=== PATIENT | female | born 1975 | race Caucasian/White ===

== ENCOUNTER 2018-07-10 17:41 | Emergency (ER) | payer MEDICAID ==
[~2018-07-10] VITALS: Ht 165.1 cm; Wt 79.0 kg
[2018-07-10 18:23] VITALS: Ht 165.1 cm; Wt 79.0 kg
[2018-07-10] MEDS ORDERED: ACETAMINOPHEN 500 MG TAB PO STA (21:27)
--- NOTE | 2018-07-10 21:27 | ERD ---
ER Documentation Chief Complaint Chief Complaint 19 WEEKS PREG WITH VAGINAL BLEEDING HPI This is a 42-year-old female who presents emergency department with complaints of vaginal bleeding, pelvic pain that started today. LMP: February 25, 2018. HAILEE: 11/30/2017. . OB doctor: Ferdinand Baez MD. Denies headache, dizziness, blurry vision, changes in vision, neck pain, neck stiffness, throat pain, difficulty swallowing, difficulty breathing lying flat, loss of bowel bladder control, urinary symptoms, or possibility of being , vaginal bleeding, vaginal discharge, trauma, injury, falls, recent surgery in the last 3 weeks, recent travel, recent long travel, leg pain, difficulty walking, numbness or tingling sensation, recent exposure to any illness, recent antibiotic use in the last 3 months, fever, chills. ROS All systems reviewed and are negative except as per history of present illness. Medications Home Meds Active Scripts Vit No.124/Iron/FA ( Vitamin Tablet) 1 Each Tablet, 1 EACH PO DAILY, #30 TAB Prov:PASILABAN,KLAR F 07/10/18 Cephalexin* (Keflex*) 500 Mg Capsule, 500 MG PO TID for 7 Days, CAP Prov:PASILABAN,KLAR F 07/10/18 Acetaminophen* (Tylophen*) 500 Mg Capsule, 1 CAP PO Q6H PRN for PAIN AND OR ELEVATED TEMP, #20 CAP Prov:PASILABAN,KLAR F 07/10/18 Allergies Allergies: Coded Allergies: No Known Drug Allergies (Verified Allergy, Mild, 10/05/10) No Known Allergy (Verified , 03/22/11) PMhx/Soc Medical and Surgical Hx: pt denies Surgical Hx History of Surgery: No Anesthesia Reaction: No Hx Neurological Disorder: No Hx Respiratory Disorders: No Hx Cardiac Disorders: No Hx Psychiatric Problems: No Hx Miscellaneous Medical Probl: Yes (THYROID) Hx Alcohol Use: No Hx Substance Use: No Hx Tobacco Use: No Smoking Status: Never smoker Physical Exam Vitals Physical Exam Const: No acute distress Head: Atraumatic Eyes: Normal Conjunctiva ENT: Normal External Ears, Nose and Mouth. Neck: Full range of motion. No meningismus. Resp: Clear to auscultation bilaterally Cardio: Regular rate and rhythm, no murmurs Abd: Soft, non tender, non distended. Normal bowel sounds. Negative [place] sign. Negative [place] sign (heel jar test) were negative psoas sign. Negative [place]ov[place] sign. Skin: No petechiae or rashes Back: No midline or flank tenderness. No CVA tenderness. Ext: No cyanosis, or edema Neur: Awake and alert. No neurological deficits. Psych: Normal Mood and Affect Results 24 hrs Laboratory Tests Test 07/10/18 21:36 White Blood Count 7.8 10^3/ul Red Blood Count 4.41 10^6/ul Hemoglobin 13.4 g/dl Hematocrit 40.4 % Mean Corpuscular Volume 91.6 fl Mean Corpuscular Hemoglobin 30.4 pg Mean Corpuscular Hemoglobin Concent 33.2 g/dl Red Cell Distribution Width 13.9 % Platelet Count 172 10^3/UL Mean Platelet Volume 10.6 fl Immature Granulocytes % 0.600 % Neutrophils % 68.4 % Lymphocytes % 25.3 % Monocytes % 4.9 % Eosinophils % 0.5 % Basophils % 0.3 % Nucleated Red Blood Cells % 0.0 /100WBC Immature Granulocytes # 0.050 10^3/ul Neutrophils # 5.4 10^3/ul Lymphocytes # 2.0 10^3/ul Monocytes # 0.4 10^3/ul Eosinophils # 0.0 10^3/ul Basophils # 0.0 10^3/ul Nucleated Red Blood Cells # 0.0 10^3/ul Urine Color YELLOW Urine Clarity SLIGHTLY CLOUDY Urine pH 5.0 Urine Specific [place] 1.024 Urine Ketones 2+ mg/dL Urine Nitrite NEGATIVE mg/dL Urine Bilirubin NEGATIVE mg/dL Urine Urobilinogen NEGATIVE mg/dL Urine Leukocyte Esterase NEGATIVE Patrice/ul Urine Microscopic RBC 104 /HPF Urine Microscopic WBC 13 /HPF Urine Squamous Epithelial Cells FEW /HPF Urine Bacteria FEW /HPF Urine Mucus MODERATE /HPF Urine Hemoglobin 3+ mg/dL Urine Glucose NEGATIVE mg/dL Urine Total Protein NEGATIVE mg/dl Sodium Level 135 mmol/L Potassium Level 3.9 mmol/L Chloride Level 103 mmol/L Carbon Dioxide Level 23 mmol/L Anion Gap 9 Blood Urea Nitrogen 9 mg/dl Creatinine 0.45 mg/dl Est Glomerular Filtrat Rate mL/min > 60 mL/min Glucose Level 83 mg/dl Calcium Level 9.3 mg/dl Total Bilirubin 0.1 mg/dl Direct Bilirubin 0.00 mg/dl Indirect Bilirubin 0.1 mg/dl Aspartate Amino Transf (AST/SGOT) 28 IU/L Alanine Aminotransferase (ALT/SGPT) 19 IU/L Alkaline Phosphatase 75 IU/L Total Protein 7.2 g/dl Albumin 3.8 g/dl Globulin 3.40 g/dl Albumin/Globulin Ratio 1.11 Amylase Level 97 U/L Lipase 46 U/L Beta HCG, Quantitative 79182.0 mIU/ml Current Medications Medications Dose Sig/Daryl Start Time Status Last (Trade) Ordered Route PRN Stop Time Admin Dose Reason Admin 500 mg ONCE STAT 07/10/18 DC Acetaminophen PO 21:27 (Tylenol 07/10/18 21:30 Tab) Procedures/MDM Diagnostic tests: Urinalysis: Reviewed. Culture urine: Sent. HCG quantitative: 75327.0. Type and Rh: O Positive. OB ultrasound: Single live intrauterine gestation with estimated gestational age of 19 weeks and 2 days +/-1 week and 2 days, as detailed above. Treatment: Tylenol p.o. Re-evaluation: Denies chest pain, back pain, abdominal pain, vaginal bleeding. No CVA tenderness. Differential diagnosis I have low suspicion for ectopic , hemorrhaging, sepsis. Final diagnosis: Vaginal bleeding in . Threatened . Prescription: Keflex. Tylenol. vitamins. Follow-up with OB in the next 24-48 hours. Resources was also provided. Come back here in the emergency department for any new symptoms or any worsening symptoms. All questions and concerns were answered. Patient and family members verbalized understanding and agreed with plan of care. Hemodynamically stable on discharge. Departure Diagnosis: Primary Impression: Vaginal bleeding in patient at less than 20 weeks gestation Additional Impression: Threatened Condition: Stable Additional Instructions: Follow-up with OB in the next 24-48 hours. Resources was also provided. Come back here in the emergency department for any new symptoms or any worsening symptoms. JOMAR MCMAHON Jul 10, 2018 21:27
[2018-07-10] MEDS ORDERED: ACET500C5 PO (23:41)
[2018-07-10] MEDS ORDERED: CEPH-443 PO (23:41)
[2018-07-10] MEDS ORDERED: PREN-93 PO (23:42)
[2018-07-11 00:46] VITALS: BP 156/67; PULSE 91; RESP 18
== END 2018-07-11 00:48 | disposition home or self-care (01) ==
LOC: FTE 17:41
DX: O20.0 Threatened abortion (principal); R10.2 Pelvic and perineal pain; Z3A.19 19 weeks gestation of pregnancy
CPT/HCPCS: 76805; 80053; 81001; 82150; 83690; 84702; 85025; 86900; 86901; 87086; Z7610

== ENCOUNTER 2018-11-13 12:21 | Outpatient (CLI) | payer MEDICAID ==
[~2018-11-13] VITALS: Ht 152.4 cm; Wt 84.5 kg
[~2018-11-13 12:21] MED LIST: ACET500C5 PO; CEPH-443 PO; PREN-93 PO
[2018-11-13 12:33] VITALS: Ht 152.4 cm; Wt 84.5 kg
[2018-11-13 12:34] VITALS: BP 125/73; PULSE 86; RESP 18
--- NOTE | 2018-11-13 19:26 | PN ---
Triage Information Date/Time Reason for visit: Uterine contractions Weeks of Gestation 37 weeks /Para Diabetes: none Hypertention: none Objective Vital Signs Date Temp Pulse Resp B/P (MAP) Pulse Ox O2 O2 Flow FiO2 Time Delivery Rate 11/13/18 98.2 86 18 125/73 12:34 (90) Heart Rate: 140's Heart Rate Comments Reactive Exam Cervix 1 cm Results/Medications Imaging Results BP 01/02 Disposition: Discharge Assessment/Plan Not in labor TRESA PEREZ MD Nov 13, 2018 19:26
--- NOTE | 2018-11-13 20:26 | TRIAGE ---
OB Triage Datetime Report Generated by CPN: 11/13/2018 20:25 Datetime: 11/13/2018 19:20 Vaginal Exam Dilatation (cms): 1.0 Effacement (%): 70 Station: -3 Exam By: Dr. Delshad Membrane Status: Intact Datetime: 11/13/2018 18:56 Labor Evaluation Frequency: irreg Monitor Mode: External Duration (sec)2399: 40-60 Quality: Mild Pattern: Normal: <= 5 Contractions in 10 Minutes Resting Tone [place]: Relaxed Heart Rate FHR Baseline Rate: 155 Monitor Mode: External US Variability: Moderate 6-25 bpm Accelerations: 15X15 Decelerations: None Category: Category I Datetime: 11/13/2018 18:08 Vaginal Exam Dilatation (cms): 1.5 Effacement (%): 70 Station: -3 Exam By: wliu Datetime: 11/13/2018 17:56 Labor Evaluation Frequency: occ Monitor Mode: External Duration (sec)2399: 50 Quality: Mild Pattern: Normal: <= 5 Contractions in 10 Minutes Resting Tone [place]: Relaxed Heart Rate FHR Baseline Rate: 145 Monitor Mode: External US Variability: Moderate 6-25 bpm Accelerations: 15X15 Decelerations: None Category: Category I Datetime: 11/13/2018 17:00 Labor Evaluation Frequency: irreg Monitor Mode: External Duration (sec)2399: 60-80 Quality: Mild Pattern: Normal: <= 5 Contractions in 10 Minutes Resting Tone [place]: Relaxed Heart Rate FHR Baseline Rate: 145 Monitor Mode: External US Variability: Moderate 6-25 bpm Accelerations: 15X15 Decelerations: Late Category: Category II Comments: late x2 Datetime: 11/13/2018 16:01 Labor Evaluation Frequency: 3-9 Monitor Mode: External Duration (sec)2399: 60-90 Quality: Mild Pattern: Normal: <= 5 Contractions in 10 Minutes Resting Tone [place]: Relaxed Heart Rate FHR Baseline Rate: 145 Monitor Mode: External US Variability: Moderate 6-25 bpm Accelerations: 15X15 Decelerations: Late Category: Category II Datetime: 11/13/2018 15:55 Assessment Type: Triage Datetime: 11/13/2018 15:28 Vaginal Exam Dilatation (cms): 1.0 Effacement (%): 70 Station: -3 Exam By: wliu Datetime: 11/13/2018 14:38 Labor Evaluation Frequency: 2-6 Monitor Mode: External Duration (sec)2399: 50-80 Quality: Mild Pattern: Normal: <= 5 Contractions in 10 Minutes Resting Tone [place]: Relaxed Heart Rate FHR Baseline Rate: 145 Monitor Mode: External US Variability: Moderate 6-25 bpm Accelerations: 15X15 Decelerations: None Category: Category I Datetime: 11/13/2018 14:00 Labor Evaluation Frequency: 4-6 Monitor Mode: External Duration (sec)2399: 60-120 Quality: Mild Pattern: Normal: <= 5 Contractions in 10 Minutes Resting Tone [place]: Relaxed Heart Rate FHR Baseline Rate: 145 Monitor Mode: External US Variability: Moderate 6-25 bpm Accelerations: 15X15 Decelerations: None Category: Category I Datetime: 11/13/2018 13:10 Vaginal Exam Dilatation (cms): 0.0 Exam By: wliu Datetime: 11/13/2018 13:00 Labor Evaluation Frequency: 3-5 Monitor Mode: External Duration (sec)2399: 50-60 Quality: Mild Pattern: Normal: <= 5 Contractions in 10 Minutes Resting Tone [place]: Relaxed Heart Rate FHR Baseline Rate: 145 Monitor Mode: External US Variability: Moderate 6-25 bpm Accelerations: 15X15 Decelerations: None Category: Category I Datetime: 11/13/2018 12:32 Assessment Type: Triage Maternal Assessment Level of Consciousness: Keenly Alert, Responsive DTR's/Clonus: DTRs 2+; No Clonus Headache: Denies Blurred Vision: No Respiratory Effort: Unlabored; Regular Rhythm; Equal Expansion Breath Sounds, Left: Clear and Equal Breath Sounds, Right: Clear and Equal Nausea/Vomiting: Denies RUQ Epigastric Pain: Denies Lower Extremities Edema: None Degree: None Upper Extremities Edema: None Degree: None Facial Edema: None Fall Risk Assessment History of Falling: (0) No Secondary Diagnosis: (0) No Ambulatory Aid: (0) Bedrest/Nurse Assist IV Therapy: (0) No Gait: (0) Normal/Bedrest/Immobile Mental Status: (0) Oriented to Own Ability Fall Score: 0 Fall Risk Score Definition: No Risk: No action required Datetime: 11/13/2018 12:31 Time of Arrival: 11/13/2018 12:15 EGA: 37.5 Arrived By: Ambulatory Arrived From: Home Chief Complaint: c/o vag. pressure Movement: Present Contractions: Denies/Absent Rupture of Membranes: Denies Vaginal Bleeding: None Vaginal Discharge: Denies Recent Sexual Intercouse: Denies Abdominal Trauma: Not Applicable Patient Complaints: Other Time Provider Notified: 11/13/2018 13:13 Provider Notified: Initial Plan: r/o labor
== END 2018-11-13 19:45 | disposition home or self-care (01) ==
LOC: OBT 12:21 → L-D 12:22 → OBT 19:45
PROVIDERS: ATTEND Obstetrics & Gynecology
DX: O62.9 Abnormality of forces of labor, unspecified (principal); O09.523 Supervision of elderly multigravida, third trimester; Z3A.37 37 weeks gestation of pregnancy
CPT/HCPCS: 76818; Z7500; G0463

== ENCOUNTER 2018-11-14 19:55 | Outpatient (CLI) | payer MEDICAID ==
[~2018-11-14] VITALS: Ht 152.4 cm; Wt 84.3 kg
[~2018-11-14 19:55] MED LIST changes: -ACET500C5 PO; -CEPH-443 PO
[2018-11-14 21:16] VITALS: BP 120/67; PULSE 82; RESP 15
--- NOTE | 2018-11-15 03:01 | TRIAGE ---
OB Triage Datetime Report Generated by CPN: 11/15/2018 03:01 Datetime: 11/14/2018 21:33 Stage of : OB Triage Labor Evaluation Frequency: 3-6 Monitor Mode: External Quality: Mild Pattern: Normal: <= 5 Contractions in 10 Minutes Resting Tone [place]: Relaxed Contraction Comments: Pt denies feelin ucs or discomfort Heart Rate FHR Baseline Rate: 150 Monitor Mode: External US FHR Baseline Changes: No Baseline Change Variability: Moderate 6-25 bpm Accelerations: 15X15 Decelerations: None Category: Category I Vaginal Exam Dilatation (cms): 2.0 Effacement (%): 80 Station: -2 Exam By: Maxi Rai Membrane Status: Intact Vaginal Bleeding: Scant Cervix, Consistency: Soft Cervix, Position: Posterior Presentation 'A': Cephalic Datetime: 11/14/2018 20:43 Time of Arrival: 11/14/2018 19:45 EGA: 37.6 Arrived By: Ambulatory Arrived From: Home Chief Complaint: presents w/ orders for follow up NST Per Dr Thrasher pt was here yesterday w/ ucs and had several variables Movement: Present Contractions: Denies/Absent Rupture of Membranes: Denies Vaginal Bleeding: None Vaginal Discharge: Denies Recent Sexual Intercouse: Denies Abdominal Trauma: Not Applicable Patient Complaints: None Time Provider Notified: 11/14/2018 20:00 Provider Notified: Dr Thrasher Initial Plan: NST Datetime: 11/14/2018 20:39 Stage of : OB Triage Maternal Assessment Headache: Denies Blurred Vision: No Respiratory Effort: Unlabored Nausea/Vomiting: Denies RUQ Epigastric Pain: Denies Facial Edema: None Quality: Mild Resting Tone [place]: Relaxed Heart Rate FHR Baseline Rate: 140 Monitor Mode: External US Pain Assessment Pain Scale: 0 Pain Presence: None/Denies Pain Type: N/A Datetime: 11/13/2018 19:18 Pain Assessment Pain Scale: 0 Pain Presence: None/Denies Pain Type: N/A Datetime: 11/13/2018 12:32 Fall Risk Assessment Fall Score: 0 Fall Risk Score Definition: No Risk: No action required Datetime: 11/13/2018 12:31 EGA: 37.5
--- NOTE | 2018-11-15 11:01 | PN ---
Triage Information Date/Time late entry for service rendered at 2220 0n 11/14/18 Reason for visit: NST f/u Weeks of Gestation 37w6d /Para Diabetes: none Hypertention: none Additional information x2 PTB on at 34w one at 32w Objective Vital Signs Date Temp Pulse Resp B/P (MAP) Pulse Ox O2 O2 Flow FiO2 Time Delivery Rate 11/14/18 98.2 82 15 120/67 Room Air 21:16 (84) Heart Rate Comments CAT I tracing Exam VE 1-2/80/-3 Results/Medications Results 24 hrs Laboratory Tests Test 11/14/18 20:30 Urine Color YELLOW Urine Clarity SLIGHTLY CLOUDY A Urine pH 6.0 Urine Specific [place] 1.025 Urine Ketones NEGATIVE Urine Nitrite NEGATIVE Urine Bilirubin NEGATIVE Urine Urobilinogen NEGATIVE Urine Leukocyte Esterase NEGATIVE Urine Microscopic RBC 5 Urine Microscopic WBC 1 Urine Squamous Epithelial Cells FEW Urine Mucus FEW A Urine Hemoglobin NEGATIVE Urine Glucose NEGATIVE Urine Total Protein NEGATIVE Imaging Results BPP done 11/13/18 8/8,KEYUR 10.8 Disposition: Discharge Assessment/Plan A IUP 37w6d reactive NST P discharge home with routine labor instructions RTH prn f/u with with her OB on 11/15/18 LUTHER LONGORIA MD Nov 15, 2018 11:01
== END 2018-11-14 23:00 | disposition home or self-care (01) ==
LOC: OBT 19:55 → L-D 19:56 → OBT 23:00
PROVIDERS: ATTEND Obstetrics & Gynecology
DX: O36.8330 Maternal care for abnormalities of the fetal heart rate or rhythm, third trimester, not applicable or unspecified (principal); O09.523 Supervision of elderly multigravida, third trimester; Z3A.37 37 weeks gestation of pregnancy
CPT/HCPCS: 81001; 87086; Z7500; 81003; G0463

== ENCOUNTER 2018-11-26 06:14 | Inpatient (IN) | payer MEDICAID ==
[~2018-11-26] VITALS: Ht 152.4 cm; Wt 86.0 kg
[2018-11-26] VITALS (7 sets, daily range): BP systolic 101–136; BP diastolic 58–91; PULSE 92–107; RESP 18–20
[2018-11-26] MEDS ORDERED: LACTATED RINGER'S 1,000 ML IV SCH ×2 (06:36→15:01)
[2018-11-26] MEDS ORDERED: LACTATED RINGER'S 1,000 ML IV PRN (06:36)
[2018-11-26] MEDS ORDERED: AMPICILLIN 2 GM/NS (PMX) 100 ML IV ONE (06:38)
[2018-11-26] MEDS ORDERED: AMPICILLIN 2 GM/NS (PMX) 100 ML ONE (06:38)
--- NOTE | 2018-11-26 06:38 | TRIAGE ---
OB Triage Datetime Report Generated by CPN: 11/26/2018 06:38 Datetime: 11/26/2018 06:18 Time of Arrival: 11/26/2018 06:10 EGA: 39.4 Arrived By: Ambulatory Arrived From: Home Chief Complaint: CONTRACTIONS Movement: Present Contractions: Regular Time Contractions Began: 11/26/2018 05:00 Contractions: Q10MIN- PER PT Rupture of Membranes: Denies Vaginal Bleeding: None Vaginal Discharge: Denies Recent Sexual Intercouse: Denies Abdominal Trauma: Not Applicable Patient Complaints: Contractions Time Provider Notified: 11/26/2018 06:30 Provider Notified: FAZILAT Initial Plan: CEFM, SVE Datetime: 11/14/2018 22:49 Stage of : OB Triage Datetime: 11/14/2018 22:23 Stage of : OB Triage Datetime: 11/14/2018 21:33 Vaginal Exam Dilatation (cms): 1.5 Datetime: 11/14/2018 20:43 EGA: 37.6 Datetime: 11/13/2018 12:32 Fall Risk Assessment Fall Score: 0 Fall Risk Score Definition: No Risk: No action required Datetime: 11/13/2018 12:31 EGA: 37.5
[2018-11-26] MEDS ORDERED: IBUPROFEN 600 MG TAB PO PRN (07:00)
[2018-11-26] MEDS ORDERED: METHYLERGONOVINE 0.2 MG INJ IM PRN ×3 (07:00→15:30)
[2018-11-26] MEDS ORDERED: LIDOCAINE 1% (MPF) 30 ML INJ INJ PRN (07:00)
[2018-11-26] MEDS ORDERED: CARBOPROST 250 MCG INJ IM PRN ×3 (07:00→15:30)
[2018-11-26] MEDS ORDERED: OXYTOCIN 30 UNITS/LR 500 ML IV SCH ×3 (07:00→15:01)
[2018-11-26] MEDS ORDERED: BUTORPHANOL 2 MG INJ IV PRN (07:00)
[2018-11-26] MEDS ORDERED: OXYTOCIN 30 UNITS/LR 500 ML IV PRN ×3 (07:00→15:30)
[2018-11-26] MEDS ORDERED: MISOPROSTOL 200 MCG TAB PR PRN ×3 (07:00→15:30)
--- NOTE | 2018-11-26 07:32 | PREAC ---
Date/Time of Note Date/Time of Note DATE: 11/26/18 TIME: 07:30 Anesthesia Eval and Record Evaluation Time Pre-Procedure Interview DATE: 11/26/18 TIME: 07:30 Age 42 Sex female NPO: 8 hrs Preoperative diagnosis LABOR PAIN Planned procedure LABOR EPIDURAL Past Medical History Past Medical History: Includes GI: Obesity : : (3), Para: (2), Gestational age: (39 4/7 WEEKS) Surgery & Anesthesia Issues No known issue Meds Anticoagulation: No Beta Brendan within 24 hr: No Reason Beta Brendan not given: Pt. not on B-Brendan Active Scripts Vit No.124/Iron/FA ( Vitamin Tablet) 1 Each Tablet, 1 EACH PO DAILY, #30 TAB Prov:JOMAR MCMAHON Estelita 07/10/18 Current Medications Lactated Ringer's 1,000 ml @ 125 mls/hr Q8H IV ; Start 11/26/18 at 06:36 Ampicillin 100 ml @ 100 mls/hr ONCE ONCE IV Last administered on 11/26/18at 06:41; Admin Dose 100 MLS/HR; Start 11/26/18 at 06:38; Stop 11/26/18 at 07:37 Ampicillin 50 ml @ 100 mls/hr Q4H IV ; Start 11/26/18 at 11:00 Butorphanol Tartrate (Stadol) 2 mg Q2H PRN IV .PAIN SCALE 6-10; Start 11/26/18 at 07:00 Lidocaine (Xylocaine 1% (Mpf)) 30 ml ONCE PRN INJ .EPISIOTOMY; Start 11/26/18 at 07:00 Oxytocin/Lactated Ringer's 500 ml @ 500 mls/hr ONCE POST IV ; Start 11/26/18 at 07:00 Oxytocin/Lactated Ringer's 500 ml @ 125 mls/hr POST IV ; Start 11/26/18 at 07:00 Ibuprofen (Motrin) 600 mg ONCE PRN PO .PAIN 1-5; Start 11/26/18 at 07:00 Lactated Ringer's 1,000 ml @ 2,000 mls/hr Q30M PRN IV .ANESTHESIA Last admi nistered on 11/26/18at 06:41; Admin Dose 2,000 MLS/HR; Start 11/26/18 at 06:36 Oxytocin/Lactated Ringer's 500 ml @ 0 mls/hr ONCE PRN IV .VAGINAL BLEEDING; Start 11/26/18 at 07:00 Methylergonovine Maleate (Methergine) 0.2 mg ONCE PRN IM .VAGINAL BLEEDING; Start 11/26/18 at 07:00 Carboprost Tromethamine (Hemabate) 250 mcg ONCE PRN IM .VAGINAL BLEEDING; Start 11/26/18 at 07:00 Misoprostol (Cytotec) 1,000 mcg ONCE PRN CA .VAGINAL BLEEDING; Start 11/26/18 at 07:00 Meds reviewed: Yes Allergies Coded Allergies: No Known Allergy (Verified , 11/14/18) Allergies Reviewed: Yes Labs/Studies Labs Reviewed: Reviewed by anesthesiologist Result Diagram: 11/26/18 0630 Laboratory Tests 11/26/18 06:30 test: N/A Pre-procedure Exam Last vitals Vital Signs Date Temp Pulse Resp B/P (MAP) Pulse Ox O2 O2 Flow FiO2 Time Delivery Rate 11/26/18 98.3 92 20 135/91 Room Air 06:40 (106) Airway: Adequate mouth opening, Adequate thyromental dist Mallampati: Mallampati II Teeth: Normal Lung: Normal Heart: Normal ASA Physical Status ASA physical status: 2 Emergency: None Planned Anesthetic Neuraxial: Epidural Planned Pain Management Epidural Pre-operative Attestations Prior to commencing anesthesia and surgery, the patient was re-evaluated, there was verification of: *The patient's identity *The results of appropriate recent lab work and preoperative vital signs *The above evaluation not changing prior to induction *Anesthetic plan, risk benefits, alternative and complications discussed with patient/family; questions answered; patient/family understands, accepts and wishes to proceed. Richar Rogers M.D. Nov 26, 2018 07:31
[2018-11-26] MEDS ORDERED: FENTAnyl 2MCG/ML-ROPIV 0.2% 100 ML ONE (07:35)
--- NOTE | 2018-11-26 08:45 | PAC ---
Date/Time of Note Date/Time of Note DATE: 11/26/18 TIME: 08:45 Post-Anesthesia Notes Post-Anesthesia Note Last documented vital signs Vital Signs Date Temp Pulse Resp B/P (MAP) Pulse Ox O2 O2 Flow FiO2 Time Delivery Rate 11/26/18 98.3 92 20 135/91 Room Air 06:40 (106) Activity: WNL Respiratory function: WNL Cardiovascular function: WNL Mental status: Baseline Pain reasonably controlled: Yes Hydration appropriate: Yes Nausea/Vomiting absent: Yes Richar Rogers M.D. Nov 26, 2018 08:45
[2018-11-26] MEDS ORDERED: NALOXONE (0.4 MG/ML) INJ IV PRN ×2 (09:00→10:30)
[2018-11-26] MEDS ORDERED: ONDANSETRON 4 MG INJ IV PRN ×2 (09:00→10:30)
[2018-11-26] MEDS ORDERED: DIPHENHYDRAMINE 50 MG INJ IV PRN ×2 (09:00→10:30)
[2018-11-26] MEDS ORDERED: TRIMETHOBENZAMIDE 100 MG/ML VIAL IM PRN ×2 (09:00→10:30)
[2018-11-26] MEDS ORDERED: CEFAZOLIN 2 GM/50 ML (PMX) 50 ML IVPB ONE (09:29)
[2018-11-26] MEDS ORDERED: CEFAZOLIN 2 GM/50 ML (PMX) 50 ML IVPB SCH (09:30)
--- NOTE | 2018-11-26 09:32 | PREAC ---
Date/Time of Note Date/Time of Note DATE: 11/26/18 TIME: 09:31 Anesthesia Eval and Record Evaluation Time Pre-Procedure Interview DATE: 11/26/18 TIME: 09:31 Age 42 Sex female NPO: 8 hrs Preoperative diagnosis distress Planned procedure urgent c section Past Medical History Past Medical History: Includes : : (3), Para: (2), Gestational age: (39 4/7) Surgery & Anesthesia Issues No known issue Meds Anticoagulation: No Beta Brendan within 24 hr: No Reason Beta Brendan not given: Pt. not on B-Brendan Active Scripts Vit No.124/Iron/FA ( Vitamin Tablet) 1 Each Tablet, 1 EACH PO DAILY, #30 TAB Prov:JOMAR MCMAHON Estelita 07/10/18 Current Medications Lactated Ringer's 1,000 ml @ 125 mls/hr Q8H IV ; Start 11/26/18 at 06:36 Ampicillin 50 ml @ 100 mls/hr Q4H IV ; Start 11/26/18 at 11:00 Butorphanol Tartrate (Stadol) 2 mg Q2H PRN IV .PAIN SCALE 6-10; Start 11/26/18 at 07:00 Lidocaine (Xylocaine 1% (Mpf)) 30 ml ONCE PRN INJ .EPISIOTOMY; Start 11/26/18 at 07:00 Oxytocin/Lactated Ringer's 500 ml @ 500 mls/hr ONCE POST IV ; Start 11/26/18 at 07:00 Oxytocin/Lactated Ringer's 500 ml @ 125 mls/hr POST IV ; Start 11/26/18 at 07:00 Ibuprofen (Motrin) 600 mg ONCE PRN PO .PAIN 1-5; Start 11/26/18 at 07:00 Lactated Ringer's 1,000 ml @ 2,000 mls/hr Q30M PRN IV .ANESTHESIA Last administered on 11/26/18at 06:41; Admin Dose 2,000 MLS/HR; Start 11/26/18 at 06:36 Oxytocin/Lactated Ringer's 500 ml @ 0 mls/hr ONCE PRN IV .VAGINAL BLEEDING; Start 11/26/18 at 07:00 Methylergonovine Maleate (Methergine) 0.2 mg ONCE PRN IM .VAGINAL BLEEDING; Start 11/26/18 at 07:00 Carboprost Tromethamine (Hemabate) 250 mcg ONCE PRN IM .VAGINAL BLEEDING; Start 11/26/18 at 07:00 Misoprostol (Cytotec) 1,000 mcg ONCE PRN PA .VAGINAL BLEEDING; Start 11/26/18 at 07:00 Naloxone HCl (Narcan) 0.1 mg Q2M PRN IV .RESP RATE; Start 11/26/18 at 09:00; Stop 11/27/18 at 08:59 Diphenhydramine HCl (Benadryl) 25 mg Q6H PRN IV .ITCHING; Start 11/26/18 at 09:00; Stop 11/27/18 at 08:59 Ondansetron HCl (Zofran Inj) 4 mg Q6H PRN IV .NAUSEA/VOMITING; Start 11/26/18 at 09:00; Stop 11/27/18 at 08:59 Trimethobenzamide HCl (Tigan) 200 mg Q6H PRN IM .NAUSEA/VOMITING; Start 11/26/18 at 09:00; Stop 11/27/18 at 08:59 Cefazolin Sodium/ Dextrose 50 ml @ 100 mls/hr ONCE IVPB ; Start 11/26/18 at 09:30; Status UNV Oxytocin/Lactated Ringer's 500 ml @ 0 mls/hr ONCE PRN IV .VAGINAL BLEEDING; Start 11/26/18 at 09:30; Status UNV Methylergonovine Maleate (Methergine) 0.2 mg ONCE PRN IM .VAGINAL BLEEDING; Start 11/26/18 at 09:30; Status UNV Carboprost Tromethamine (Hemabate) 250 mcg ONCE PRN IM .VAGINAL BLEEDING; Start 11/26/18 at 09:30; Status UNV Misoprostol (Cytotec) 1,000 mcg ONCE PRN PA .VAGINAL BLEEDING; Start 11/26/18 at 09:30; Status UNV Meds reviewed: Yes Allergies Coded Allergies: No Known Allergy (Verified , 11/14/18) Allergies Reviewed: Yes Labs/Studies Labs Reviewed: Reviewed by anesthesiologist Result Diagram: 11/26/18 0630 Laboratory Tests 11/26/18 06:30 Blood Bank Test 11/26/18 06:30 Antibody Screen NEGATIVE Blood Type O POSITIVE Rh Immune Globulin Candidate NO test: Negative Pre-procedure Exam Last vitals Vital Signs Date Temp Pulse Resp B/P (MAP) Pulse Ox O2 O2 Flow FiO2 Time Delivery Rate 11/26/18 98.3 92 20 135/91 Room Air 06:40 (106) Airway: Adequate mouth opening, Adequate thyromental dist Mallampati: Mallampati II Teeth: Normal Lung: Normal Heart: Normal ASA Physical Status ASA physical status: 2 Emergency: E Planned Anesthetic Neuraxial: Epidural Planned Pain Management Sub-arachniod narcotics Pre-operative Attestations Prior to commencing anesthesia and surgery, the patient was re-evaluated, there was verification of: *The patient's identity *The results of appropriate recent lab work and preoperative vital signs *The above evaluation not changing prior to induction *Anesthetic plan, risk benefits, alternative and complications discussed with patient/family; questions answered; patient/family understands, accepts and wishes to proceed. Richar Rogers M.D. Nov 26, 2018 09:32
[2018-11-26] MEDS ORDERED: METOCLOPRAMIDE 10 MG INJ ONE (09:36)
[2018-11-26] MEDS ORDERED: OXYTOCIN 10 UNIT INJ ONE (09:36)
[2018-11-26] MEDS ORDERED: morphine SULFATE/PF (10 MG/10 ML) INJ ONE (09:36)
[2018-11-26] MEDS ORDERED: FENTAnyl 50 MCG/ML VIAL ONE (09:36)
[2018-11-26] MEDS ORDERED: KETAMINE (50 MG/ML) 10 ML VIAL ONE (09:41)
[2018-11-26] MEDS ORDERED: AZITHROMYCIN 500MG/NS (PMX) 250 ML IV SCH (10:00)
[2018-11-26] MEDS ORDERED: morphine 2 MG INJ IV PRN ×2 (10:30)
[2018-11-26] MEDS ORDERED: NALBUPHINE HCL (10 MG/1 ML) INJ IV PRN (10:30)
[2018-11-26] MEDS ORDERED: KETOROLAC 30 MG INJ IV PRN (10:30)
--- NOTE | 2018-11-26 10:36 | PAC ---
Date/Time of Note Date/Time of Note DATE: 11/26/18 TIME: 10:36 Post-Anesthesia Notes Post-Anesthesia Note Last documented vital signs Vital Signs Date Temp Pulse Resp B/P (MAP) Pulse Ox O2 O2 Flow FiO2 Time Delivery Rate 11/26/18 98.3 92 20 135/91 Room Air 06:40 (106) Activity: WNL Respiratory function: WNL Cardiovascular function: WNL Mental status: Baseline Pain reasonably controlled: Yes Hydration appropriate: Yes Nausea/Vomiting absent: Yes Richar Rogers M.D. Nov 26, 2018 10:36
--- NOTE | 2018-11-26 10:59 | QN ---
Documentation Comment Patient with recurrent heart decelerations with vertex at 0 station, pushing but there is no descent of head. Patient with Category II tracing remote from delivery. Patient is for delivery by primary . Risks, benefits and alternatives were explained to the patient who stated she understood and gave informed consent for the procedure. TRESA PEREZ MD Nov 26, 2018 10:59
[2018-11-26] MEDS ORDERED: AMPICILLIN 1 GM/NS (PMX) 50 ML IV SCH (11:00)
--- NOTE | 2018-11-26 11:53 | OPR ---
Operative Report Planned Procedure Procedure date Nov 26, 2018 Procedure(s) Primary low transverse Performed by Tresa Perez MD Patient Financial Services Coordinator: MOHAN OSBORNE M.D. Anesthesiologist: Richar Rogers M.D. Pre-procedure diagnosis Term with Category II tracing [id number] Anesthesia Type: [id number] epidural Post-Procedure Post-procedure diagnosis Same Findings Live Baby, Apgars 8 and 9. Estimated Blood Loss: other (600 ml) Specimen(s) Placenta Grafts/Implant(s) none Complication(s) none Pt Condition post procedure: stable Disposition: PACU Procedure Description After epidural anesthesia had been dosed and tested, the patient was placed supine on the Operating Room table and prepped and draped in the usual sterile fashion for a section. A Pfannenstiel incision was made through the abdomen and carried down to the level of the fascia. The fascia was incised transversely and then the rectus muscle was dissected off the fascia and split bluntly in the midline. The peritoneum was the entered bluntly. The bladder flap was created and then a low segment transverse incision was made with a knife on the uterus until the amniotic fluid was encountered. The incision was widened with bandage scissors. A hand was inserted elevating the vertex and then the head delivered with assistance of fundal pressure.. The nares and oropharynx were bulb suctioned, and the remainder of the was delivered out of the maternal abdomen. . The cord was doubly clamped and cut, and the infant handed off to the awaiting resuscitation team who was present for delivery. The placenta was then manually extracted and the interior uterus was cleaned with a dry lap sponge. The uterus was exteriorized, and the incision of the uterus closed with a running interlocking stitch of Monocryl suture. The uterus was replaced in the maternal abdomen. The abdomen was cleared of clots. The fascia was closed with a running suture of #1 Vicryl suture meeting in the midline. The subcutaneous tissue was made hemostatic with Bovie cautery, and the skin approximated using tuan. The patient tolerated the procedure well. All sponge and instrument counts were correct. She was taken to the recovery room in stable condition. TRESA PEREZ MD Nov 26, 2018 11:53
[2018-11-26] MEDS ORDERED: OXYCODONE/ACETAMINOPHEN (5/325) TAB PO PRN ×2 (15:30)
[2018-11-26] MEDS ORDERED: LANOLIN HPA 1 PKT TOP PRN (15:30)
--- NOTE | 2018-11-26 20:34 | HP ---
Date/Time of Note Date/Time of Note DATE: 11/26/18 TIME: 20:33 OB - History Hx of Present Chief Complaint: contractions Estimated Due Date: Dec 02, 2018 : 3 Para: 2 Spontaneous : 0 Therapeutic : 0 Care: Good Care Ultrasounds: Normal mid trimester US Obstetrical Complications: None Medical Complications: None Past Family/Social History * Past Medical, Surgical, Family and Obstetric Histories reviewed from chart. OB Admission Exam Vital Signs Vital Signs Vital Signs Date Temp Pulse Resp B/P (MAP) Pulse Ox O2 O2 Flow FiO2 Time Delivery Rate 11/26/18 102 19 113/58 Room Air 17:00 (76) 11/26/18 98 16:00 11/26/18 98.1 15:00 Physical Exam HEENT: WNL Heart: Rhythm Normal Lungs: Clear, Equal Abdomen: WNL Extremities: Normal Reflexes: Normal Cervical Dilatation: 2cm Effacement: 50% Station: -1 Membranes: Intact Heart Rate: 120's Accelerations: Accelerations Present Decelerations: No Decelerations Varibility: Moderate Last 72 hours Lab Results CBC & BMP 11/26/18 06:30 OB Assessment/Plan Reason for admission: active labor Plan: Expectant Management TRESA PEREZ MD Nov 26, 2018 20:34
[2018-11-26] MEDS: SENNA/DOCUSATE NA (8.6MG/50MG) TAB PO SCH (21:45)
[2018-11-27] VITALS: BP 109/53; PULSE 98; RESP 18
[2018-11-27] MEDS ORDERED: LACTATED RINGER'S 1,000 ML IV SCH (02:00)
[2018-11-27 04:25] VITALS: BP 118/65; PULSE 96; RESP 18
[2018-11-27 08:00] VITALS: BP 102/62; PULSE 94; RESP 18
[2018-11-27] MEDS: SENNA/DOCUSATE NA (8.6MG/50MG) TAB PO SCH ×2 (08:36→21:00)
--- NOTE | 2018-11-27 09:27 | QN ---
Documentation Comment No complaint Afebrile VSS Abdomen soft POD #1 Stable Ambulate Advance diet TRESA PEREZ MD Nov 27, 2018 09:27
[2018-11-27] MEDS: IBUPROFEN 800 MG TAB PO SCH ×2 (15:06→21:49)
[2018-11-27 15:57] VITALS: BP 106/69; PULSE 87; RESP 18
[2018-11-27 19:40] VITALS: BP 107/63; PULSE 88; RESP 18
[2018-11-28 04:00] VITALS: BP 109/73; PULSE 74; RESP 18
[2018-11-28] MEDS: IBUPROFEN 800 MG TAB PO SCH ×3 (05:33→22:03)
[2018-11-28 08:30] VITALS: BP 95/56; PULSE 70; RESP 15
[2018-11-28] MEDS: SENNA/DOCUSATE NA (8.6MG/50MG) TAB PO SCH ×2 (09:00→22:03)
--- NOTE | 2018-11-28 13:30 | QN ---
Documentation Comment No complaint Afebrile VSS Abdomen soft Incision intact Stable Continue present care. TRESA PEREZ MD Nov 28, 2018 13:30
[2018-11-28 16:38] VITALS: BP 109/72; PULSE 98; RESP 16
[2018-11-28 20:00] VITALS: BP 115/67; PULSE 77; RESP 20
[2018-11-29 04:00] VITALS: BP 91/63; PULSE 69; RESP 18
[2018-11-29] MEDS: IBUPROFEN 800 MG TAB PO SCH ×2 (06:18→14:24)
[2018-11-29] MEDS: SENNA/DOCUSATE NA (8.6MG/50MG) TAB PO SCH (09:00)
[2018-11-29] MEDS ORDERED: DIPHTH/TET/ACEL PERTUSS (ADULT) 0.5 ML VIAL IM* ONE (09:00)
[2018-11-29 09:03] VITALS: BP 105/61; PULSE 68; RESP 14
--- NOTE | 2018-11-29 13:17 | DS ---
Date/Time of Note Date/Time of Note DATE: 11/29/18 TIME: 13:16 Obstetrical Discharge Record Final Diagnosis Final Diagnosis: Term delivered Section Section: Primary Primary Indication Category II tracing Condition on Discharge Physical Assessment Voiding: Yes Bowel Movement: Yes Breast: Soft, non-tender, Filling Fundus: Firm Abdomen and Incision: Incision intact Calf Tenderness: No Patient Condition: Stable TRESA PEREZ MD Nov 29, 2018 13:17
[2018-11-29 16:00] VITALS: BP 130/64; PULSE 82; RESP 16
--- NOTE | 2018-11-30 20:21 | DELSUM ---
Delivery Summary A-C Datetime Report Generated by CPN: 11/30/2018 20:20 DELIVERY PERSONNEL [employer] Professional: Johnson, Mary MATERNAL INFORMATION Delivery Anesthesia: Epidural Medications in Delivery: see anesthesia Delivery QBL (ml): 600 Placenta Cultured: No Maternal Complications: None LABOR SUMMARY EDC: 11/29/2018 00:00 No. Babies in Womb: 1 Attempted: No Labor Anesthesia: Epidural LABOR INFORMATION Reason for Induction: Not Applicable Onset of Labor: 11/26/2018 05:00 Group B Beta Strep: Positive Antibiotics # of Doses: 1 Antibiotics Time of Last Dose: 11/26/2018 06:40 Steroids Given: None Reason Steroids Not Administered: Not Applicable MEMBRANES Membranes Rupture Method: Spontaneous Rupture of Membranes: 11/26/2018 07:19 Length of Rupture (hr): 2.42 Amniotic Fluid Color: Light Meconium Amniotic Fluid Amount: Small Amniotic Fluid Odor: None STAGES OF LABOR Stage 3 hr: 0 Stage 3 min: 2 Total Time in Labor hr: 4 Total Time in Labor min: 46 CSECTION DELIVERY Primary Indication: Nonreassuring Stat Other Primary Indication: catagory 2 tracing CSection Urgency: Emergency CSection Incidence: Primary Labor: Labor Elective: Nonelective CSection Incision: Lower Uterine Transverse BABY A INFORMATION Infant Delivery Date/Time: 11/26/2018 09:44 Method of Delivery: Born in Route : No : N/A Forceps: N/A Vacuum Extraction: N/A Shoulder Dystocia : No SHOULDER DYSTOCIA BABY A Delivery Date/Time: 11/26/2018 09:44 PRESENTATION/POSITION BABY A Presentation: Cephalic Cephalic Presentation: Vertex Vertex Position: Left Occipital Anterior Breech Presentation: N/A PLACENTA INFORMATION BABY A Placenta Delivery Time : 11/26/2018 09:46 Placenta Method of Delivery: Manual Removal Placenta Status: Delivered SCORES BABY A Heart Rate 1 min: >100 bpm Resp Effort 1 min: Good Cry Reflex Irritability 1 min: Cough/Sneeze/Pulls Away Muscle Tone 1 min: Active Motion Color 1 min: Blue/Pale Resuscitation Effort 1 min: Tactile Stimulation SCORE 1 MIN: 8 Heart Rate 5 min: >100 bpm Resp Effort 5 min: Good Cry Reflex Irritability 5 min: Cough/Sneeze/Pulls Away Muscle Tone 5 min: Active Motion Color 5 min: Body [employer], Extremit Blue Resuscitation Effort 5 min: Tactile Stimulation SCORE 5 MIN: 9 INFANT INFORMATION BABY A Gestational Age at Delivery: 39.4 Gestational Status: Full Term- 39- 40.6 Weeks Infant Outcome : Liveborn, with signs of life Condition : Stable Infant Sex: Female IDENTIFICATION/MEDS BABY A ID Band Number: [id number] ID Band Location: Right Leg; Left Arm Sensor Applied: Yes Sensor Number: [id number] Sensor Location : Cord Clamp Vitamin K Given : Not Given Erythromycin Given: Not Given WEIGHT/LENGTH BABY A Birthweight (gm): 3125 Infant Weight (lb): 6 Infant Weight (oz): 14 Infant Length (in): 19.25 Length (cm): 48.90 CORD INFORMATION BABY A No. Cord Vessels: 3 Nuchal Cord : N/A Cord Blood Taken: Yes Infant Suction: Mouth; Nose ASSESSMENT BABY A Infant Complications: Multiple Variable Decels Physical Findings at Delivery: Within Normal Limits Respirations: Appears Normal Ceramics Engineer/ALS Called : Yes Care By: nicu Transferred To: Remains with Mother
== END 2018-11-29 19:15 | disposition home or self-care (01) | DRG 788 ==
LOC: OBT 06:14 → L-D 06:14 → OBT 06:25 → L-D 06:27 → PP1 14:58
PROVIDERS: ADMIT Obstetrics & Gynecology; ATTEND Obstetrics & Gynecology
PROC: 10D00Z1 Extraction of Products of Conception, Low, Open Approach (ICD-10-PCS; principal; 2018-11-26 09:30)
DX: O76 Abnormality in fetal heart rate and rhythm complicating labor and delivery (principal); Z3A.39 39 weeks gestation of pregnancy; Z37.0 Single live birth; O32.4XX0 Maternal care for high head at term, not applicable or unspecified
CPT/HCPCS: 36415; 36600; 62322; 82803; 85025; 85610; 85730; 86592; 86850; 86900; 86901; 90715; 99464; G0463; J0290; J0456; J0690; J1885; J2274; J2590; J2765; J3010; J7120